=== PATIENT | female | born 2000 | race Caucasian/White ===

== ENCOUNTER 2021-08-02 20:27 | Emergency (ER) | payer OTHER, SELFPAY ==
--- NOTE | ~2021-08-02 | XR_ITS ---
EXAM: XR ankle RT min 3V DATE: 08/02/2021 21:27 HISTORY: JUMP INJURY X 1 DAY,RT HEEL RADIATES UP ANKLE,BRUSING . COMPARISON: None available. FINDINGS: Normal mineralization. No fracture or dislocation. No lytic or blastic lesion. Joint space s are maintained. No erosion or periosteal change. Soft tissues within normal limits. IMPRESSION: No acute osseous finding in the right ankle. Reviewed, dictated and finalized at location K.
[2021-08-02 20:53] VITALS: BP 120/78; PULSE 110; RESP 16; TEMP 36.4; O2SAT 99
--- NOTE | 2021-08-02 23:04 | ED.LOWEXIN ---
HPI - Extremity Injury (Lower) General Chief Complaint: Extremity Injury, Lower Stated Complaint: Right foot heel pain s/p jumping into pool Time Seen by Provider: 08/02/21 22:40 History of Present Illness HPI Narrative: Patient is a 21-year-old female who presents ER with right heel pain. She jumped into a shallow pool and suffered injury yesterday. No numbness or tingling at this time. Able to perform toe-touch weightbearing. Did not strike her head or lose consciousness. No swelling. Related Data Allergies Allergy/AdvReac Type Severity Reaction Status Date / Time amoxicillin Allergy Unknown Hives Verified 08/02/21 20:53 Review of Systems Musculoskeletal: Musculoskeletal: Denies arthralgias, Denies joint swelling and Denies muscle cramps Neurologic: Denies syncope, Denies focal weakness and Denies numbness PMFSH Past Medical History Medical History (Updated 08/02/21 @ 23:11 by Jarek Gonzalez MD) Healthy female adult Surgical History Surgical History (Updated 08/02/21 @ 23:07 by Jarek Gonzalez MD) No pertinent past surgical history Social History Social History Smoking status: Never smoker Alcohol intake: never Exam Narrative: GENERAL: Well-appearing, well-nourished, and in no acute distress. HEAD: Normocephalic, atraumatic. EXTREMITIES: Normal range of motion. No edema. Tender palpation base of right calcaneus medially. Achilles tendon intact. Normal dorsalis pedis and posterior tibial pulses. Sensation intact. SKIN: Warm, dry, no rash. NEURO: Alert and oriented x3. PSYCH: Normal mood and affect. Course Course Emergency Course: Discharge home with crutches weightbearing as tolerated. Vital Signs Vital signs: Vital Signs Temperature 97.6 F 08/02/21 20:53 Pulse Rate 110 H 08/02/21 20:53 Respiratory Rate 16 08/02/21 20:53 Blood Pressure 120/78 08/02/21 20:53 Pulse Oximetry 99 08/02/21 20:53 Temperature 97.6 F 08/02/21 20:53 Pulse Rate 110 H 08/02/21 20:53 Respiratory Rate 16 08/02/21 20:53 Blood Pressure 120/78 08/02/21 20:53 Pulse Oximetry 99 08/02/21 20:53 MDM - Extremity Injury (Lower) Imaging Data Radiologist's impression: ITS Impressions Ankle X-Ray 08/02/21 21:28 IMPRESSION: No acute osseous finding in the right ankle. Discharge Plan Discharge Clinical Impression: Contusion of heel Patient Disposition: Home, Self-Care Condition: Stable Instructions: Contusion in Adults (ED), P.R.I.C.E. Treatment (ED) Prescriptions: New ibuprofen 600 mg tablet 600 mg PO TID Qty: 14 0RF Follow-up/Referrals: PHYSICIAN NOT ON STAFF,NONSTAFF [Primary Care Provider] - 1 Week
[2021-08-02] MEDS: HYDROcodone/acetaminophen (*CRX) 5-325 MG TABLET 1 TAB PO (23:18)
== END 2021-08-02 23:24 | disposition home or self-care (01) ==
PROVIDERS: Emergency Provider Emergency Medicine
DX: S90.31XA Contusion of right foot, initial encounter (principal); W16.512A Jumping or diving into swimming pool striking water surface causing other injury, initial encounter
CPT/HCPCS: 73610; 99283; A9270